=== PATIENT | male | born 1995 | race Caucasian/White ===

== ENCOUNTER 2024-07-10 07:37 | Emergency (ER) | payer BC, SELFPAY ==
[2024-07-10 07:48] VITALS: BP 153/85; PULSE 60; RESP 16; TEMP 36.2; O2SAT 98; BMI 25.0
--- NOTE | 2024-07-10 08:06 | ED.GENADULT ---
HPI - General Adult General Date Seen: 07/10/24 Chief complaint: Laceration/Wound Stated complaint: Lac above R eyebrow Time Seen by Provider: 07/10/24 08:03 History of Present Illness HPI narrative: 28 yo M generally healthy, very pleasant gentleman who presents to the ER today for a right forehead laceration. He is up-to-date on his tetanus and believes he had all of his shots updated when he was in the [employer] a couple of years ago. He is currently on Augmentin because he had a throat infection last week but that is healing well. This morning he was going to work and he accidentally bumped his forehead against the upper edge of the car door of his jeep and suffered a horizontal laceration to the right side of his forehead just above the hairline of his right eyebrow. It was bleeding dark red venous blood but bleeding was controlled by direct pressure prior to arrival. He had his coworkers and his boss look at the wound and they encouraged him to come to the ER to get stitches because it was gaping open. No loss of consciousness. No headache. No other injuries. Vision is normal. Related Data Home Medications ?Medication ?Instructions ?Recorded ?Confirmed No Known Home Medications 07/10/24 07/10/24 Allergies Allergy/AdvReac Type Severity Reaction Status Date / Time cat dander Allergy Unknown Verified 07/10/24 07:53 [facility] Social History Smoking Status: Never smoker How often do you have a drink containing alcohol: never How often do you have six or more drinks on one occasion: Never AUDIT-C Alcohol total score: 0 Non-prescribed substance use: denies use Exam Narrative: Exam Narrative: Constitutional: Appears well-developed and well-nourished. Alert. Conversant. Non toxic. HENT: Head: No depressed skull fracture, Raccoon Eyes, Champion's sign, or hemotympanum. Face normal. TMs normal. There is a 2.5 cm linear laceration on the right forehead that is less than a cm superior to and parallels along the upper border of the lateral and of his right eyebrow. The wound edges gaping about a 3 mm at the center. It exposes dermis and some of the frontalis muscle but does not penetrate through the muscle or down to the skull. Nose: Nose normal. Mouth/Throat: Oral mucosa is clear and moist. no trismus. Pharynx normal. Tonsils symmetric. No tonsillar enlargement, erythema, or exudate. Eyes: Conjunctivae normal. EOM normal. Pupils equal, round, and reactive to light. No scleral icterus. Neck: Normal range of motion. Neck supple. No tracheal deviation present. Cardiovascular: Normal rate, regular rhythm. Pulmonary/Chest: Effort normal. No stridor. No respiratory distress. Musculoskeletal: RUE: Normal range of motion. No tenderness. No deformity LUE: Normal range of motion. No tenderness. No deformity RLE: Normal range of motion. No edema. No tenderness. No deformity LLE: Normal range of motion. No edema. No tenderness. No deformity Neurological: Alert and oriented to person, place, and time. Normal strength. CN II-VII intact. No sensory deficit. GCS eye subscore is 4. GCS verbal subscore is 5. GCS motor subscore is 6. Normal coordination Skin: Skin is warm and dry. No rash noted. No pallor. Normal capillary refill. Psychiatric: Normal mood. Normal affect. Const: Vital Signs, click to edit/add: Vital Signs - 24 hr 07/10/24 07:48 Temperature 97.2 F L Pulse Rate [Pulse Oximeter] 60 Respiratory Rate 16 Blood Pressure [Ri ght Upper Arm] 153/85 H Pulse Oximetry 98 Oxygen Delivery Me thod Room Air Course Vital Signs Vital signs: Initial Vital Signs Temperature 97.2 F L 07/10/24 07:48 Temperature Source Temporal Artery Scan 07/10/24 07:48 Pulse Rate 60 07/10/24 07:48 Respiratory Rate 16 07/10/24 07:48 Blood Pressure 153/85 H 07/10/24 07:48 Blood Pressure Mean 107 H 07/10/24 07:48 Blood Pressure Position Sitting 07/10/24 07:48 Pulse Oximetry 98 07/10/24 07:48 Oxygen Delivery Method Room Air 07/10/24 07:48 Vital Signs Temperature 97.2 F L 07/10/24 07:48 Pulse Rate 60 07/10/24 07:48 Respiratory Rate 16 07/10/24 07:48 Blood Pressure 153/85 H 07/10/24 07:48 Pulse Oximetry 98 07/10/24 07:48 Oxygen Delivery Method Room Air 07/10/24 07:48 Temperature 97.2 F L 07/10/24 07:48 Pulse Rate 60 07/10/24 07:48 Respiratory Rate 16 07/10/24 07:48 Blood Pressure 153/85 H 07/10/24 07:48 Pulse Oximetry 98 07/10/24 07:48 Oxygen Delivery Method Room Air 07/10/24 07:48 Medications Administered Medications: Discontinued Medications Generic Name Dose Route Start Last Admin Trade Name Eboni PRN Reason Stop Dose Admin Lidocaine/Epinephrine 20 ml 07/10/24 08:06 07/10/24 08:22 Lidocaine 1%-Epi 1:100,000 INFILTRATI 07/10/24 08:07 20 ml ONCE ONE Administration Medical Decision Making MDM Narrative Medical decision making narrative: Findings and exam are consistent with an uncomplicated laceration which was repaired as noted above. There is no evidence at this time to suggest any associated fracture or foreign body. There is no evidence to suggest intracranial injury and patient is neurologically in tact. The patient is to follow up for suture removal as instructed in 5-7 days if they don't dissolve and fall out on their own. Indications to seek urgent reevaluation and signs of infection (including but not limited to increasing pain, redness, swelling, fevers, and drainage) were reviewed. Tetanus is up-to-date. This is a clean and noncontaminated wound in which prophylactic antibiotics are not indicated, however he is already on Augmentin for a throat infection and so I advised him to continue that. An understanding of the discharge instructions and need for follow up were verbally confirmed. Discharge Plan Discharge Clinical Impression: Forehead laceration Patient Disposition: Home, Self-Care Condition: Stable Instructions: Laceration (DC) Additional Instructions: As we discussed, please follow-up with your doctor to have the stitches removed in 5-7 days. While the stitches are in, try to keep the wound clean. It is okay to wash the wound gently once per day with warm water. Try not to submerge the wound under water or get it very wet. After the wound is clean, gently dried with gauze or let it air dry. After it is dry you can reapply a small amount of antibiotic ointment and a dressing to cover the wound and the stitches. Watch the wound for any signs of infection such as redness, swelling, or pus draining from the wound. If you have any concerns, please see your doctor or come back to the ER right away. As we discussed, this wound will leave a scar. To help minimize scar, use sunscreen and wear a hat for the next 6 months to avoid sun tanned or sun exposure. If you have any other concerns, please contact the ER or return to the ER right away. Prescriptions: No Action No Known Home Medications Follow Up/Referrals: Provider,Not a Local [Primary Care Provider] - Stand Alone Forms: [facility] Info Instructions Procedures Laceration Right forehead laceration: Pre procedure diagnosis: Right eyebrow laceration Verification/time out: correct patient and correct site Site: face (Right forehead, superior to the right eyebrow) Side (If applicable): right Size (cm): 2.5 Description: linear Depth: simple, single layer Local Anesthetic: lidocaine 1% and with epi Pre-repair: wound explored and deep structures intact Skin layer closed with: nylon Size (cm): 6-0 Number of sutures: 5 Technique: simple, interrupted
[2024-07-10] MEDS: LIDOCAINE 1%-EPI 1:100,000 20 ML INFILTRATI (08:22)
--- OUTSIDE RECORDS SUMMARY | 2024-07-10 08:33 | XMS_ITS | Clinical Summary ---
Author Organization [employer] [facility] Address [address] [place] [id number] Care Team Providers Care Operation Agent Name Role Phone Clinic, No Pcp Or Primary Care Provider Unavaila ble Allergies Active Allergy Reactions Criticality Noted Date Comments Cats (Fur, Dander, Saliva) Itching 3 Dust Mites Itching 04/20/2012 Pollen Extracts Itching 04/20/2012 Medications aspirin 325 mg tablet Take 325 mg by mouth once daily with a meal. Active cyclobenzaprine (FLEXERIL) 10 mg tabletIndication s:Acute left-sided thoracic back pain Take 1 Tablet (10 mg) by mouth at bedtime if needed for Muscle Spasm. 20 Tablet 01/18/2024 Active amoxicillin-clav ulanate 875-125 mg tabletIndication s:Pharyngitis, unspecified etiology Take 1 Tablet by mouth two times daily with meals for 10 days. 20 Tablet 07/05/2024 07/16/19 25 Active Encounters Date Type Department Care Team Description 07/06/2024 10:36 PM CDT - 07/06/2024 11:[address] [facility] [address] [place] [address] José Luis Tinoco MD Pharyngitis, unspecified etiology (Primary Dx) Discharge Disposition: Home Self Care 07/06/2024 Travel 07/05/2024 12:44 PM CDT - 07/05/2024 11:59 PM CDT Hospital Encounter [facility] [address] [facility] [place] [address] Jeannie Wheeler PA 07/05/2024 11:01 AM CDT - 07/05/2024 12:25 PM CDT Emergency [facility] [address] [place] [phone] Jeannie Wheeler PA Pharyngitis, unspecified etiology (Primary Dx) Discharge Disposition: Home Self Care 07/05/2024 Travel from Last 3 Months Social History Tobacco Use Types Packs/Day Years Used Date Smoking Tobacco: Never Passive Smoke Exposure: Never Smokeless Tobacco: Current Chew Tobacco Cessation:Ready to Q uit: Not Asked; Counseling Given: Not Answered Alcohol Use Standard Drinks/Week Comments Not Asked 0 (1 standard drink = 0.6 oz pur e alcohol) Social Connections Answer Date Recorded Do you often feel lonely or isolated from those around you? 0 01/18/2024 Financial Resource Strain Answer Date R ecorded Difficulty of Paying Living Expenses 3 04/14/2024 Difficulty of Paying Living Expenses Not on file 04/14/2024 Food Insecurity Answer Date Recorded Do you worry your food will run out before you are able to buy more? 1 01/18/2024 Transportation Needs Answer Date Record ed Does lack of transportation keep you from medica l appointments? 1 01/18/2024 Does lack of transportation keep you from work, meetings or getting things that you need? 1 01/18/2024 Housing Stability Answer Date Recorded What is your housing situation today? 1 01/18/2024 Interpersonal Safety Answer Date Record ed Are you being hit, kicked, p ushed or yelled at (see row info)? No 07/06/2024 Interpersonal Safety Abuse 12 - 18 Not on file 07/06/2024 Interpersonal Safety Ambulatory Vulnerability No t on file 07/06/2024 Utilities Answer Date Recorded Do you have trouble paying f or utilities (for example, heat, electricity, water, phone)? 1 01/18/2024 Sex and Gender Information Value Date Recorded Sex Assigned at Not on file Legal Sex Male 5:48 AM [employer] Gender Identity Not on file Sexual Orientation Not on file Obstetrics History Last Filed Vital Signs Vital Sign Reading Time Taken Comments Blood Pressure 143/94 07/06/2024 11:28 PM CDT Pulse 79 07/06/2024 11:28 PM CDT Temperature 37.3 C (99.1 F) 07/06/2024 10:42 PM CDT Respiratory Rate 18 07/06/2024 10:42 PM CDT Oxygen Saturation 96% 07/06/2024 11:28 PM CDT Inhaled Oxygen Concentration - - Weight 88.5 kg (195 lb) 07/06/2024 10:42 PM CDT Height 188 cm (6' 2) 07/06/2024 10:42 PM CDT Body Mass Index 25.04 07/06/2024 10:42 PM CDT Plan of Treatment Health Maintenance Due Date Last Done Comments Tdap 2008 Depression screening for age 12+ 2009 HIV for age 15-65 2012 HPV series for age 9-26 (1 - Male 3-dose series) 2012 BMI (ht and wt on same day) for age 18+ 10/10/2015 Hepatitis C screening for ag e 18-79 10/10/2015 Tetanus booster 2017 COVID-19 vaccine series ( season) 2023 04/08/2021, 08/18/2020 Influenza Vaccine (Season Ended) 2024 Pneumococcal series for age 6-49 Aged Out No longer eligible b ased on patient's age to complete this topic Procedures Procedure Name Priority Date/Time Associated Diagnosis Comments CT NECK SOFT TISSUE W STAT 07/05/2024 1:25 PM CDT ISTAT CHEM 8 Today 07/05/2024 12:15 PM CDT HETEROPHILE STAT 07/05/2024 11:39 AM CDT CWS PATH REVIEW HEMATOLOGY STAT 07/05/2024 11:38 AM CDT RED CELL MORPHOLOGY STAT 07/05/2024 1 1:38 AM CDT PLATELET ESTIMATE STAT 07/05/2024 11: 38 AM CDT MANUAL DIFFERENTIAL STAT 07/05/2024 1 1:38 AM CDT CBC WITH AUTO DIFFERENTIAL STAT 07/05/2024 11:38 AM CDT CBC WITH AUTO DIFFERENTIAL STAT 07/05/2024 11:38 AM CDT STREP A PCR STAT 07/05/2024 11:11 AM CDT COVID-19 MOLECULAR Today 07/05/2024 11 :11 AM CDT THROAT RAPID STREP A WITH REFLEX STAT 07/05/2024 11:11 AM CDT INFLUENZA A/B PCR Today 07/05/2024 11: 11 AM CDT from Last 3 Months Results * CT NECK SOFT TISSUE W (07/05/2024 1:25 PM CDT) Anatomical Region Laterality Modality NECK Computed Tomogra phy 07/05/2024 1:51 PM CDT Impressions 07/05/2024 1:51 PM CDT Tonsillitis and pharyngitis. Reactive adenitis. No abscess. Please note that all CT scans at this facility use dose modulation, iterative reconstruction, and/or weight-based dosing when appropriate to reduce radiation dose to as low as reasonably achievable. Dictated by Layla Shah MD @ 07/05/2024 1:51:20 PM (Electronically Signed) Narrative 07/05/2024 1:51 PM CDT For Patients: As a result of the Cures Act, medical imaging exams and procedure reports are released immediately into your electronic medical record. You may view this report before your referring provider. If you have questions, please contact your health care provider. INDICATION: Epiglottitis or tonsillitis suspected. COMPARISON: None. TECHNIQUE: CT of the neck with IV contrast. Multiplanar axial, coronal, and sagittal reformats were reconstructed. Intravenous contrast: 80 mL Omnipaque 350. FINDINGS: Lymph nodes: Mildly enlarged bilateral cervical lymph nodes. No veronica necrosis or veronica abscess. Enlarged lymph nodes are primarily level II. Parotid and submandibular glands: Normal. Thyroid gland: Normal. Tonsils: Mildly enlarged adenoids. Enlarged and mildly hyperenhancing palatine and lingual tonsils. There is a single punctate tonsillith on the right and 1 on the left. Airway: Normal. Not deviated or narrowed. Normal epiglottis. Parapharyngeal spaces: Mild pharyngeal edema. No peritonsillar abscess. No retropharyngeal edema or abscess. Paranasal sinus: Normal. Soft tissues: Normal. No swelling. No foreign body. Arteries: No atherosclerosis. Veins: No deep vein thrombosis. Lung apices: Normal. Bones: No fractures. No focal bone lesions. Healthy dentition. Included intracranial contents, orbits and mastoids: Normal. Procedure Note Layla Shah MD - 07/05/2024 For Patients: As a result of the Cures Act, medical imagingexams and procedure reports are released immediately into your electronicmedical record. You may view this report before your referring provider.If you have questions, please contact your health care provider. INDICATION: Epiglottitis or tonsillitis suspected. COMPARISON: None. TECHNIQUE: CT of the neck with IV contrast. Multiplanar axial, coronal, and sagittalreformats were reconstructed. Intravenous contrast: 80 mL Omnipaque 350. FINDINGS: Lymph nodes: Mildly enlarged bilateral cervical lymph nodes. No nodalnecrosis or veronica abscess. Enlarged lymph nodes are primarily level II. Parotid and submandibular glands: Normal. Thyroid gland: Normal. Tonsils: Mildly enlarged adenoids. Enlarged and mildly hyperenhancingpalatine and lingual tonsils. There is a single punctate tonsillith on theright and 1 on the left. Airway: Normal. Not deviated or narrowed. Normal epiglottis. Parapharyngeal spaces: Mild pharyngeal edema. No peritonsillar abscess. Noretropharyngeal edema or abscess. Paranasal sinus: Normal. Soft tissues: Normal. No swelling. No foreign body. Arteries: No atherosclerosis. Veins: No deep vein thrombosis. Lung apices: Normal. Bones: No fractures. No focal bone lesions. Healthy dentition. Included intracranial contents, orbits and mastoids: Normal. IMPRESSION: Tonsillitis and pharyngitis. Reactive adenitis. No abscess. Please note that all CT scans at this facility use dose modulation,iterative reconstruction, and/or weight-based dosing when appropriate toreduce radiation dose to as low as reasonably achievable. Dictated by Layla Shah MD @ 07/05/2024 1:51:20 PM (Electronically Signed) Jeannie ALAS CT Final Result * (ABNORMAL) ISTAT CHEM 8 (07/05/2024 12:15 PM CDT) [facility] SODIUM, POCT 138 135 - 145 mmol/L 07/05/2024 12:17 PM CDT [facility] POTASSIUM, POCT 4.0 3.5 - 5.0 mmol/L 07/05/2024 12:17 PM CDT [facility] CHLORIDE, POCT 101 98 - 107 mmol/L 07/05/2024 12:17 PM CDT [facility] CO2,TOTAL, POCT 26 21 - 31 mmol/L 07/05/2024 12:17 PM CDT [facility] ANION GAP, POCT 16 5 - 18 12:17 PM CDT [facility] GLUCOSE, POCT 111(H) 70 - 99 mg/dL 07/05/2024 12:17 PM CDT [facility] IONIZED CALCIUM, POCT 1.15 1.15 - 1.27 mmol/L 07/05/2024 12:17 PM CDT [facility] BUN, POCT 19 8 - 25 mg/dL 07/05/2024 12:17 PM CDT [facility] CREATININE, POCT 1.10 0.57 - 1.11 mg/dL 07/05/2024 12:17 PM CDT [facility] Comment:Caution: Patients ta oc Hydroxyurea have falsely increased iStat Creatinine results. Verify creatinine results ordering a Creatinine (59227.2) BUN/CREAT RATIO, POCT 17 10 - 20 07/05/2024 12:17 PM CDT [facility] eGFR >90 >90 mL/min/1.7 3m2 07/05/2024 12:17 PM CDT [facility] Comment:As of 2021, eG FR is calculated by the CKD-EPI creatinine equation without race adjustment. eGFR can be influenced by muscle mass, exercise, and diet. The reported eGFR is an estimation only and is only applicable if the renal function is stable. Blood BLOOD SPECIMEN / Unknown 07/05/2024 12:15 PM CDT 07/05/2024 12:17 PM CDT Jeannie ALAS CHEMISTRY Final Result Performing Organization Address City/[facility]/ZIP Co de Phone Number [facility] [address] [facility] [address] [address], [place] [phone] * HETEROPHILE (07/05/2024 11:39 AM CDT) Pathologist [facility] HETEROPHILE Negative Negative 07/05/2024 11:49 AM CDT [facility] Blood BLOOD SPECIMEN / Unknown Venipuncture / Unknown 07/05/2024 11:39 AM CDT 07/05/2024 11:39 AM CDT Jeannie ALAS HEMATOLOGY Final Result Performing Organization Address [facility] Co de Phone Number [facility] [address] [address], [place] [phone] * CWS PATH REVIEW HEMATOLOGY (07/05/2024 11:38 AM CDT) [facility] PATH COMMENT Reviewed by KM on 07/06/2024 07/06/2024 1:10 PM CDT [facility] Blood BLOOD SPECIMEN / Unknown Venipuncture / Unknown 07/05/2024 11:38 AM CDT 07/05/2024 11:38 AM CDT Jeannie ALAS LABORATORY Final Result Performing Organization Address City/[facility]/ZIP Co de Phone Number [facility] [address] [place] [address], [place] * (ABNORMAL) CBC WITH AUTO DIFFERENTIAL (07/05/2024 11:38 AM CDT) Pathologist [facility] WHITE BLOOD COUNT 20.6(H) 4.5 - 11.0 thou/cu mm 07/05/2024 6:04 PM CDT [facility] RED BLOOD COUNT 5.19 4.30 - 5.90 mil/cu mm 07/05/2024 6:04 PM CDT [facility] HEMOGLOBIN 15.3 13.5 - 17.5 g/dL 07/05/2024 6:04 PM CDT [facility] HEMATOCRIT 43.5 37.0 - 53.0 % 07/05/2024 6:04 PM CDT [facility] MCV 84 80 - 100 fL 07/05/2024 6:04 PM CDT [facility] MCH 29.5 26.0 - 34.0 pg 07/05/2024 6:04 PM CDT [facility] MCHC 35.2 32.0 - 36.0 g/dL 07/05/2024 6:04 PM CDT [facility] RDW 12.8 11.5 - 15.5 % 07/05/2024 6:04 PM CDT [facility] PLATELET COUNT 162 140 - 440 thou/cu mm 07/05/2024 6:04 PM CDT [facility] MPV 10.4 6.5 - 11.0 fL 07/05/2024 6:04 PM CDT [facility] Blood BLOOD SPECIMEN / Unknown Venipuncture / Unknown 07/05/2024 11:38 AM CDT 07/05/2024 11:38 AM CDT Jeannie ALAS HEMATOLOGY Final Result [facility] [address] [place] [address], [facility] [address] [place] [address], * RED CELL MORPHOLOGY (07/05/2024 11:38 AM CDT) [facility] RBC COMMENT RBC morphology appears normal RBC morphology appears normal, RBC morphology within normal limits for newborns. 07/05/2024 6:04 PM CDT [facility] Blood BLOOD SPECIMEN / Unknown Venipuncture / Unknown 07/05/2024 11:38 AM CDT 07/05/2024 11:38 AM CDT Jeannie ALAS HEMATOLOGY Final Result Performing Organization Address City/[facility]/ZIP Co de Phone Number [facility] [address] [address], [place] * PLATELET ESTIMATE (07/05/2024 11:38 AM CDT) PLATELET ESTIMATE Adequate Adequate, No estimate 07/05/2024 6:04 PM CDT [facility] Blood BLOOD SPECIMEN / Unknown Venipuncture / Unknown 07/05/2024 11:38 AM CDT 07/05/2024 11:38 AM CDT Jeannie ALAS HEMATOLOGY Final Result Performing Organization Address City/[facility] Co de Phone Number [facility] [address] [address], [place] * (ABNORMAL) MANUAL DIFFERENTIAL (07/05/2024 11:38 AM CDT) % NEUTROPHILS 85.9 % 07/05/2024 6:04 PM CDT [facility] % LYMPHOCYTES 4.3 % 07/05/2024 6:04 PM CDT [facility] % MONOCYTES 9.4 % 07/05/2024 6:04 PM CDT [facility] % EOSINOPHILS 0.4 % 07/05/2024 6:04 PM CDT [facility] % BASOPHILS 0.0 % 07/05/2024 6:04 PM CDT [facility] NEUTROPHILS ABSOLUTE 17.7(H) 1.7 - 7.0 thou/cu mm 07/05/2024 6:04 PM CDT [facility] LYMPHOCYTES ABSOLUTE 0.9 0.9 - 2.9 thou/cu mm 07/05/2024 6:04 PM CDT [facility] MONOCYTES ABSOLUTE 1.9(H) <0.9 thou/cu mm 07/05/2024 6:04 PM CDT [facility] EOSINOPHILS ABSOLUTE 0.1 <0.5 thou/cu mm 07/05/2024 6:04 PM CDT [facility] BASOPHILS ABSOLUTE 0.0 <0.3 thou/cu mm 07/05/2024 6:04 PM CDT [facility] Blood BLOOD SPECIMEN / Unknown Venipuncture / Unknown 07/05/2024 11:38 AM CDT 07/05/2024 11:38 AM CDT Jeannie ALAS HEMATOLOGY Final Result Performing Organization Address [facility]/ZIP Co de Phone Number [facility] [address] [place] [address], [place] * COVID-19 MOLECULAR (07/05/2024 11:11 AM CDT) COVID 19 [facility] MOLECULAR Negative Negative 07/05/2024 8:42 PM CDT [facility] TESTING LABORATORY [facility] 07/05/2024 8:42 PM CDT [facility] Comment:Specimen submitted t o [facility] for testing. Other OROPHARYNGEAL / Unknown Non-Blood / Unknown 07/05/2024 11:11 AM CDT 07/05/2024 11:11 AM CDT Narrative [facility] - 07/05/2024 8:42 PM CDT All PCR tests are subject to false negative result due to variability in viral load and collection technique. A negative result does not rule out a SARS-CoV-2 infection. Clinical correlation required. Jeannie ALAS MICROBIOLOGY Final Result Performing Organization Address [facility]/ZIP Co de Phone Number [facility] [address] [place] [address], [place] * STREP A PCR (07/05/2024 11:11 AM CDT) GROUP A STREP Negative 07/05/2024 7:50 PM CDT [facility] Throat SPECIMEN FROM THROAT / Unknown Non-Blood / Unknown 07/05/2024 11:11 AM CDT 07/05/2024 11:18 AM CDT Jeannie ALAS MICROBIOLOGY Final Result [facility] [address] [address], [place] * INFLUENZA A/B PCR (07/05/2024 11:11 AM CDT) Pathologist [facility] INFLUENZA A PCR Negative 07/05/2024 8:42 PM CDT [facility] INFLUENZA B PCR Negative 07/05/2024 8:42 PM CDT [facility] Other OROPHARYNGEAL / Unknown Non-Blood / Unknown 07/05/2024 11:11 AM CDT 07/05/2024 11:11 AM CDT Jeannie ALAS MICROBIOLOGY Final Result Performing Organization Address [facility] Co de Phone Number [facility] [address] [address], [place] * THROAT RAPID STREP A WITH REFLEX (07/05/2024 11:11 AM CDT) Pathologist [facility] STREP A ANTIGEN Negative 07/05/2024 11:18 AM CDT [facility] Comment:PCR to follow. Throat SPECIMEN FROM THROAT / Unknown Non-Blood / Unknown 07/05/2024 11:11 AM CDT 07/05/2024 11:11 AM CDT Jeannie ALAS MICROBIOLOGY Final Result Performing Organization Address City/[facility]/ZIP Co de Phone Number [facility] [address] [place] [address], [place] [phone] from Last 3 Months Insurance [facility] Care Teams Operation Agent Relationship Specialty Start Date End Date Clinic, No Pcp Or . PCP - General 01/23/18
--- OUTSIDE RECORDS SUMMARY | 2024-07-10 08:33 | XMS_ITS | Continuity of Care Document ---
Author Name [facility] Organization [facility] Care Team Providers Care Lead Application Architect Name Role Phone [facility] Unavailable Unavailable Problems Combined list of problems from Department of Defense and Veterans Affairs facilities. It does not include entries that were removed or entered in error. 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 08, 2021 Entered By: WILLIAM DONAHUE Comment: 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, gets unemploymentSep 08, 2021 Entered By: WILLIAM DONAHUE Comment: Sister has had Type II DM and asthma, brother had appendex removedSep 08, 2021 Entered By: WILLIAM DONAHUE Comment: [place] [employer] 2021 Entered By: WILLIAM DONAHUE Comment: CHEWS TOBACCO started at age 15Jun 2021 Entered By: WILLIAM DONAHUE Comment: NO Alcohol since 2021 Entered By: WILLIAM DONAHUE Comment: works for [employer] 08, 2021 Entered By: WILLIAM DONAHUE Comment: younger brother has had STEM CELL TRANSPLANT A , has had chemo and one kidney failed [facility] H/O: surgery Active Condition Sep 08, 2021 Entered By: WILLIAM DONAHUE Comment: s/p multiple wisdom teeth extraction on lower jaw(says he has had more than one each side of top and bottom jaw) [facility] Medications Combined list of outpatient medications from Department of Defense and Veterans Affairs facilities.Medications provided include 1) outpatient medications from the last 15 months, and 2) patient-reported medications. Medication Details Route Status Patient Instructions Prescription Expires Prescription Number Last Dispense Date Ordering Provider Order Date Order Qty Source NON VA MED NOT LISTED USE ALEEVE MOUTH PRN ORAL ACTIVE FARZAD DONAHUE S 2021 [employer] Allergies, Adverse Reactions, Alerts Combined list of allergies from Department of Defense and Veterans Affairs facilities. It does not include entries that were removed or entered in error. Substance Category Reaction Severity Reaction type Status Date Reported Comments Source No Known Allergies Drug allergy (disorder) active 09/09/2015 [place] Immunizations Combined list of available immunizations from the Department of Defense and Veterans Affairs facilities. Immunization Series Date Given Administered By Site Reaction Lot Number CVX Code Drug Material Cutter Status Comments Source SARS-COV-2 (COVID-19) vaccine, mRNA, spike protein, LNP, preservative free, 30 mcg/0.3mL dose 1 2021 REZA ACEVES [id number] [employer] (PFR) complet ed SARS-COV- 2 (COVID-19 ) vaccine, mRNA, spike protein, LNP, preservat anthony free, 30 mcg/0.3mL dose DoD COVID-19 (PFIZER), MRNA, LNP-S, PF, 30 MCG/0.3 ML DOSE 3 2021 208 complet ed [facility] influenza, injectable, quadrivalent, contains preservative 1 2021 [id number] 158 SmithKline (SKB) complet ed influenza , injectabl e, quadrival ent, contains preservat anthony DoD Influenza, injectable, Madin Julianne Canine Kidney, quadrivalent with preservative 1 2021 ALFREDO POON [id number] 186 [employer] (SKB) complet ed Influenza , injectabl e, Madin Julianne Canine Kidney, quadrival ent with preservat anthony DoD INFLUENZA, UNSPECIFIED FORMULATION 2021 88 complet ed [facility] anthrax vaccine 2020 [id number] Emergent [employer] complet ed anthrax vaccine 09/19/20 Given Ambulat ory Pharmac y anthrax vaccine 2 2020 [id number] 24 [employer]gent [employer] [place] ([facility]) complet ed anthrax vaccine DoD SARS-CoV-2 (COVID-19) Ad26 vaccine, rec [id number] 212 [employer] complet ed SARS-CoV- 2 (COVID-19 ) Ad26 vaccine, rec 08/18/20 Given Ambulat ory Pharmac y SARS-COV-2 (COVID-19) vaccine, vector non-replicati ng, recombinant spike protein-Ad26, preservative free, 0.5 mL 1 [id number] (JANETTE) complet ed SARS-COV- 2 (COVID-19 ) vaccine, vector non-repli cating, recombina nt spike protein-A d26, preservat anthony free, 0.5 mL DoD COVID-19 (KEATON), VECTOR-NR, RS-AD26, PF, 0.5 ML 1 2020 212 complet ed [facility] typhoid Vi capsular polysaccharid e vac 2020 zzRig ht Arm [id number] sanofi pasteur complet ed typhoid Vi capsular polysacch aride vac 05/30/20 Given Ambulat ory Pharmac y anthrax vaccine 2020 zzLef t Arm [id number] 24 GlaxoSmithKli ne complet ed anthrax vaccine 05/30/20 Given Ambulat ory Pharmac y measles/mumps /rubella virus vaccine 2020 zzRig ht Arm [id number] Merck & Company Inc complet ed measles/m umps/rube lla virus vaccine 05/30/20 Given Ambulat ory Pharmac y measles, mumps and rubella virus vaccine 2 2020 LASHA HUI [id number] Merck (MSD) complet ed measles, mumps and rubella virus vaccine DoD anthrax vaccine 1 2020 LASHA HUI T [id number] 24 I-MD (SKB) complet ed anthrax vaccine DoD typhoid Vi capsular polysaccharid e vaccine 1 2020 LASHA HUI T [id number] Sanofi Pasteur (PMC) complet ed typhoid Vi capsular polysacch aride vaccine DoD influenza, injectable, quadrivalent- pf 2018 [id number] 150 Seqirus complet ed influenza , injectabl e, quadrival ent-pf 01/28/19 Given Ambulat ory Pharmac y Influenza, injectable, quadrivalent, preservative free 1 2018 [id number] 150 Seqirus (SEQ) complet ed Influenza , injectabl e, quadrival ent, preservat anthony free DoD influenza, injectable, quadrivalent- pf 2017 [id number] 150 Se[employer]irus complet ed influenza , injectabl e, quadrival ent-pf 01/28/18 Given Ambulat ory Pharmac y Influenza, injectable, quadrivalent, preservative free 1 2017 [id number] 150 Seqirus (SEQ) comple t ed Influenza , injectabl e, quadrival ent, preservat anthony free DoD Influenza, inj, MDCK, quadrivalent- pf [id number] Unknown complet ed Influenza , inj, MDCK, quadrival ent-pf 01/02/17 Given Ambulat ory Pharmac y Influenza, injectable, Madin Farrell Canine Kidney, preservative free, quadrivalent 1 [id number] 171 Unknown (UNK) comple t ed Influenza , injectabl e, Madin Julianne Canine Kidney, preservat anthony free, quadrival ent DoD hepatitis B pediatric/ado lescent 2016 [id number] 08 GlaxoSmithKli ne complet ed hepatitis B pediatric /adolesce nt 09/20/16 Given Ambulat ory Pharmac y hepatitis B vaccine, pediatric or pediatric/ado lescent dosage 3 2016 [id number] 08 SmithKline (SKB) complet ed hepatitis B vaccine, pediatric or pediatric /adolesce nt dosage DoD influenza, seasonal, injectable 2015 [id number] 141 Unknown complet ed influenza , seasonal, injectabl e 02/14/16 Given Ambulat ory Pharmac y Influenza, seasonal, injectable 1 2015 [id number] 141 Unknown (UNK) comple t ed Influenza , seasonal, injectabl e DoD hepatitis B pediatric/ado lescent 2015 [id number] 08 GlaxoSmithKli ne complet ed hepatitis B pediatric /adolesce nt 10/22/15 Given Ambulat ory Pharmac y hepatitis B vaccine, pediatric or pediatric/ado lescent dosage 2 2015 [id number] 08 SmithKline (SKB) complet ed hepatitis B vaccine, pediatric or pediatric /adolesce nt dosage DoD adenovirus vaccine, live 2015 [id number] 143 Teva Pharmaceutica ls complet ed adenoviru s vaccine, live 08/29/15 Given Ambulat ory Pharmac y hepatitis B pediatric/ado lescent 2015 [id number] 08 GlaxoSmithKli ne complet ed hepatitis B pediatric /adolesce nt 08/29/15 Given Ambulat ory Pharmac y measles, mumps and rubella virus vaccine 1 2015 UNK 03 Unknown (UNK) Not Given measles, mumps and rubella virus vaccine DoD hepatitis B vaccine, pediatric or pediatric/ado lescent dosage 1 2015 [id number] 08 I-MD (SKB) complet ed hepatitis B vaccine, pediatric or pediatric /adolesce nt dosage DoD varicella virus vaccine 1 2015 UNK 21 Unknown (UNK) Not Given varicella virus vaccine DoD hepatitis A vaccine, adult dosage 1 2015 UNK 52 Unknown (UNK) Not Given hepatitis A vaccine, adult dosage DoD Adenovirus, type 4 and type 7, live, oral 1 2015 [id number] 4 143 [facility] ([facility]) complet ed Adenoviru s, type 4 and type 7, live, oral DoD tetanus, diphtheria, acellular pertu is 2015 [id number] 115 sanofi pasteur complet ed tetanus, diphtheri a, acellular pertussis 08/27/15 Given Ambulat ory Pharmac y meningococcal A,C,Y,W-135 (MCV4P) 2015 [id number] 114 GlaxoSmithKli ne complet ed meningoco ccal A,C,Y,W-1 35 (MCV4P) 08/27/15 Given Ambulat ory Pharmac y poliovirus vaccine, inactivated 2015 [id number] 10 sanofi pasteur complet ed polioviru s vaccine, inactivat ed 08/27/15 Given Ambulat ory Pharmac y poliovirus vaccine, inactivated 1 2015 [id number] 10 Sanofi Pasteur (PMC) complet ed polioviru s vaccine, inactivat ed DoD meningococcal polysaccharid e (groups A, C, Y and W-135) diphtheria toxoid conjugate vaccine (MCV4P) 1 2015 [id number] [facility] meningoco ccal polysacch aride (groups A, C, Y and W-135) diphtheri a toxoid conjugate vaccine (MCV4P) DoD tetanus toxoid, reduced diphtheria toxoid, and acellular pertu is vaccine, adsorbed 1 2015 [id number] 115 Sanofi Pasteur (PMC) complet ed tetanus toxoid, reduced diphtheri a toxoid, and acellular pertussis vaccine, adsorbed DoD TDAP 2015 115 complet ed [facility] TDAP 2009 115 complet ed [facility] Encounters Combined list of: 1) Encounters from Department of Veterans Affairs facilities going backup to the last 18 months, not all [place] inpatient encounters are included; 2) Encounters from the Department of Defense facilities going backup to 280 months. Location Location Details Encounter Type Encounter Number Reason For Visit Attending Provider ADM Date DC Date Status Disposition Source [place] [place] OUTPATIENT [id number] FRANCES SHETTY 08/27 Released w/o Limitations [place] [id number] Notes Entered by: ASIA HERNANDEZ 29 Aug 2015 0957 ------- ------- ------- ------- -- IMM MINA HENDRIX 08/28 Released w/o Limitations [place] [place] [id number] Notes Entered by: YANELI ZAVALA 29 Aug 2015 1031 ------- ------- ------- ------- -- hearing test BOBBI ZAVALA 08/28 Released w/o Limitations [place] [place] OUTPAT[place] [id number] Notes Entered by: VELOZ 09 Sep 2015 0658 ------- ------- ------- ------- -- ORTHO/ right elbow pain CHICHO HAND 09/08 Released [place]/o Limitations [place] OUTPATIENT [id number] Notes Entered by: QUINTIN MORENO RD C 20 Sep 2015 0734 ------- ------- ------- ------- -- DERM rash on back, OTHER foot pain MINA MORALES 09/19 Released with Work/Duty Limitations [place]) [place] OUTPATIENT [id number] Notes Entered by: NAHUN MANN 22 Sep 2015 0740 ------- ------- ------- ------- -- ORTHO f/u feet pain ANDREW NICHOLS 09/21 Released with Work/Duty Limitations [place] OUT[place] [id number] Notes Entered by: Terrence KRISHNA 23 Sep 2015 0958 ------- ------- ------- ------- -- Feet KILO GR C 09/22 [place]ased w/o Limitations [place] [place] [place]IENT [id number] PATIENT NEEDS [facility] ARCH SUPPORT CHELSEA LAWSON 09/25 [place]ased w/o Limitations [place] OUTPATIENT [id number] Notes Entered by: NAHUN MANN 29 Sep 2015 0704 ------- ------- ------- ------- -- ORTHO f/u plantar fasciit is ANDREW NICHOLS 09/28 Released with Work/Duty Limitations [place] [facility]) OUTPATIENT [id number] ORTHO fu feet CHALINO GARCIA 10/09 Released with Work/Duty Limitations [place] [facility]) OUTPATIENT [id number] ORTHO fu bone scan CHALINO GARCIA 10/14 Released with Work/Duty Limitations [place]) OUTPATIENT [id number] Notes Entered by: BEN PERRY 22 Oct 2015 0937 ------- ------- ------- ------- -- IMM-HEP B(P) ANDREW NICHOLS 10/21 [place]ased w/o Limitations [place] OUTPATIENT [id number] Notes Entered by: JUNE ROY 17 Sep 2016 0730 ------- ------- ------- ------- -- hearing test JUNE ELLIS 09/17 Released w/o Limitations [place] ) [place] [place] OUTPATIENT [id number] MARY WHITE 09/17 Released w/o Limitations [place] [place] [facility] [id number] Notes Entered by: ASIA HERNANDEZ 21 Sep 2016 1526 ------- ------- ------- ------- -- IMM HEP BP ANTONIO GONZALEZ 09/21 [place]ased [place]/o Limitations [place]) OUTPATIENT [id number] Notes Entered by: BEN PERRY 01 Nov 2016 0911 ------- ------- ------- ------- -- FABIÁN Alfonso 11/01 Released w/o Limitations [place] [place]([facility]) [facility] OUTPATIENT [id number] Notes Entered by: TERENCE KIDD 30 May 2020 0756 ------- ------- ------- ------- -- VERONICA GILLILAND 05/30 Released w/o Limitations [facility] OUTPATIENT [id number] Notes Entered by: DELVIN KAMARA 30 May 2020 1038 ------- ------- ------- ------- -- BOBBI RUDOLPH 05/30 Released w/o Limitations [facility] ) [facility] OUTPATIENT [id number] Notes Entered by: Traci MEHTA 07 Apr 2021 0645 ------- ------- ------- ------- -- JAZMIN SMITH 04/07 Released w/o Limitations [facility] OUTPATIENT [id number] Notes Entered by: DELVIN KAMARA 07 Apr 2021 1029 ------- ------- ------- ------- -- PATTI Pacheco+ EMANUEL MARINO 04/07 Released w/o Limitations [facility] OUTPATIENT [id number] Notes Entered by: BORA LUNA 08 Apr 2021 0619 ------- ------- ------- ------- -- F/U HEARING SINGLETONJAZMIN BELTRAN 04/08 Released w/o Limitations [facility] OUTPATIENT [id number] Notes Entered by: Clau FERNANDEZ 08 Apr 2021 0701 ------- ------- ------- ------- -- FOLLOW R2+ RE EST TINN JOSEPHINE FERNANDEZ 04/08 Released w/o Limitations [facility] OUTPATIENT [id number] Notes Entered by: REZA ACEVES 08 Apr 2021 0712 ------- ------- ------- ------- -- COVID MOI CALVERT 04/08 Released w/o Limitations [facility]) OUTPATIENT [id number] Notes Entered by: HUGH GALAN 08 Apr 2021 0912 ------- ------- ------- ------- -- 2-136 IN MB3-SM CLEAR TO BEAN MEJIA 04/08 Released w/o Limitations [facility]) [facility] OUTPATIENT [id number] WENDY GALARZA 04/10 Released w/o Limitations [facility]) Procedures Combined list of: 1) Procedures from Department of Veterans Affairs facilities going back up to thelast 18 months, not all VA non-surgical procedures are included; 2) All procedures from the Department of Defense facilities. Procedure Procedure Type Code Date Perfomer Comments Sourc e ADMINISTRATION OF PATIENT-FOCUSED HEALTH RISK ASSESSMENT INSTRUMENT (EG, HEALTH HAZARD APPRAISAL) WITH SCORING AND DOCUMENTATION, PER STANDARDIZED INSTRUMENT 04/10/2021 [facility] CASE MANAGEMENT, EACH 15 MINUTES 04/08/2021 DoD IMMUNIZATION ADMINISTRATION (INCLUDES PERCUTANEOUS, INTRADERMAL, SUBCUTANEOUS, OR INTRAMUSCULAR INJECTIONS); 1 VACCINE (SINGLE OR COMBINATION VACCINE/TOXOID) 04/08/2021 DoD PURE TONE AUDIOMETRY (THRESHOLD), AUTOMATED; AIR ONLY 04/07/2021 DoD BRIEF EMOTIONAL/BEHAVIORAL ASSESSMENT (EG, DEPRESSION INVENTORY, ATTENTION-DEFICIT/HYP ERACTIVITY DISORDER [ADHD] SCALE), WITH SCORING AND DOCUMENTATION, PER STANDARDIZED INSTRUMENT 04/07/2021 DoD PURE TONE AUDIOMETRY (THRESHOLD), AUTOMATED; AIR ONLY 05/30/2020 DoD ADMINISTRATION OF PATIENT-FOCUSED HEALTH RISK ASSESSMENT INSTRUMENT (EG, HEALTH HAZARD APPRAISAL) WITH SCORING AND DOCUMENTATION, PER STANDARDIZED INSTRUMENT 05/30/2020 DoD ATHLETIC TRAINING EVALUATION, LOW COMPLEXITY,REQ:HIST & PHYS ACT PROFILE W NO COMORB;EXAM AFF BODY AREA,ADDRESS 1-2 ELEMENTS;CLIN DEC FIONA,LOW,TYP,15 MIN ARE SPENT [id number] W THE PATIENT &/FAMILY 10/20/2016 DoD HEPATITIS B VACCINE (HEPB), PEDIATRIC/ADOLESCENT DOSAGE, 3 DOSE SCHEDULE, FOR INTRAMUSCULAR USE 09/21/2016 DoD SCREENING TEST OF VISUAL ACUITY, QUANTITATIVE, BILATERAL 09/17/2016 DoD PURE TONE AUDIOMETRY (THRESHOLD), AUTOMATED; AIR ONLY 09/17/2016 DoD HEPATITIS B VACCINE (HEPB), PEDIATRIC/ADOLESCENT DOSAGE, 3 DOSE SCHEDULE, FOR INTRAMUSCULAR USE 10/22/2015 DoD FOOT, ARCH SUPPORT, REMOVABLE, PREMOLDED, LONGITUDINAL, EACH 09/26/2015 DoD ATHLETIC TRAINING EVALUATION 09/23/2015 DoD PURE TONE AUDIOMETRY (THRESHOLD), AUTOMATED; AIR ONLY 08/29/2015 DoD ADENOVIRUS VACCINE, TYPE 7, LIVE, FOR ORAL USE 08/29/2015 DoD SCREENING TEST OF VISUAL ACUITY, QUANTITATIVE, BILATERAL 08/28/2015 DoD No data available for this section Ambulatory Pharmacy Social History Combined list of available smoking, tobacco, and other social history from Department of Defense and Veterans Affairs facilities. Social History Type Response Date Comment Sour e Tobacco smoking status NHIS VA-TOBACCO USER EVERY DAY 09/08/2021 [facility] History of tobacco use VA-TOBACCO DOESNT USE WI 30 MIN WAKEUP 09/08/2021 [facility] This section is an empty social history section. DoD Assessment and Plan Combined list of future care activities from Department of Defense and Veterans Affairs facilities (e.g., assessment and plan notes, appointments, orders, and referrals). Additional future care activities may be listed in the Plan of Care section. Result Assessment and Plan Date Source Assessment and Plan No data available for this section 07/10/2024 Ambulatory Pharmacy Plan of Care List of future care activities from Department of Veterans Affairs facilities. Additional future care activities may be listed in the Assessment and Plan section. Date/Time Care Activity Care Activity Detail Facili ty 07/19/2024 AMBULATORY - MEDICINE AMBULATORY - MEDICI CO [facility] Functional Status Combined list of recent functional and cognitive assessments recorded at Department of Defense and Veterans Affairs (VA).VA Functional Roberts Measurement (FIM) Scale: 1 = Total Assistance (Subject = 0% +), 2 = Maximal Assistance (Subject = 25% +), 3 = Moderate Assistance (Subject = 50% +), 4 = Minimal Assistance (Subject = 75% +), 5 = Supervision, 6 = Modified Roberts (Device), 7 = Complete Roberts (Timely, Safely). Assessment Date/Time Source Assessment Type Assessment Skill Assessment Score Assessment Details No data available for this section
--- OUTSIDE RECORDS SUMMARY | 2024-07-10 08:33 | XMS_ITS | Clinical Summary ---
Author Organization [employer] Address [address], [place] [address] Care Team Providers Care Hospital Unit Coordinator Name Role Phone Jem Tejeda MD Primary Care Provider [phone] Source Comments You are receiving this document as you are listed as the primary care provider,follow-up provider, or the patient has been referred to you for consultation.This is in compliance with the Medicare and[facility] EHR Incentive Program,which states Providers who transition their patient to another setting of careor provider of care or refers their patient to another provider of care shouldprovide summary care record for each transition of care or referral. [employer] Allergies No known active allergies Medications * This document contains information received from the source organization and may not represent a complete record from that organization. No known medications Active Problems Problem Noted Date Diagnosed Date Dysfunctional family processes 03/01/2012 Anxiety state 03/01/2012 Overview (11/03/2016): Anxiety state, unspecified Depression 03/01/2012 ADHD (attention deficit hyperactivity disorder) 12/09/2010 CONVERSION DX 04/24/2009 Overview (11/03/2016): LW Uncoded Problem, needs review: behavior problems Immunizations Immunization Administration Dates Next Due DTaP 10/23/2002, 9,02/12/1998,1997 DTaP/Hib 01/07/1999 Flu Vac Preserv Free (3+yrs) 01/11/2012, 01/04/2011,01/03/2010,2008,01/01/2008,01/09/2007 H1n1 Miv Sanofi 3+ Yr (Injected) 01/06/2009 HepA Ped/Adol (1-18 yrs) 11/19/2010,04/03/2009 HepB Adult (Engerix-B, 20+ y rs, 3 dose series) 08/27/1998,02/12/1998,1997 Hib (ActHIB) 04/23/1998,02/12/1998,1997 IPV (Polio) 10/23/2002,02/12/1998,1997 Influenza, Unspecified Formulation 01/26/2017 MCV4 (Menactra) 11/19/2010 MMR 10/23/2002,01/07/1999 OPV, Trivalent (Orimune or tOPV) 01/07/1999 TDAP (BOOSTRIX) 04/03/2009 Varicella 04/03/2009,01/07/1999 Family History Medical History Relation Name Comments Kidney/Bladder Disease Brother Cancer Maternal Aunt breast High Cholesterol Maternal Grandfather Cancer Maternal Grandmother breast Asthma Sister Coronary Artery Disease Negative Family History Mental Disorder Negative Family History Relation Name Status Comments Brother Maternal Aunt Maternal Grandfather Maternal Grandmother Sister Social History Tobacco Use Types Packs/Day Years Used Date Smoking Tobacco: Never Smokeless Tobacco: Current Chew Alcohol Use Standard Drinks/Week Comments No 0 (1 standard drink = 0.6 oz pur e alcohol) Sex and Gender Information Value Date Recorded Sex Assigned at Not on file Legal Sex Male 4:55 AM CDT Gender Identity Not on file Sexual Orientation Not on file Last Filed Vital Signs Vital Sign Reading Time Taken Comments Blood Pressure 122/82 04/28/2017 3:48 PM CASE MANAGEMENT ASSOCIATE Pulse 88 04/28/2017 3:48 PM CASE MANAGEMENT ASSOCIATE Temperature 38.1 C (100.6 F) 02/22/2013 1:00 PM CASE MANAGEMENT ASSOCIATE Respiratory Rate 20 12/02/2008 1:18 PM CDT Oxygen Saturation - - Inhaled Oxygen Concentration - - Weight 79.4 kg (175 lb) 04/28/2017 3:48 PM CASE MANAGEMENT ASSOCIATE Height 181.6 cm (5' 11.5) 04/28/2017 3:48 PM CS T Body Mass Index 24.07 04/28/2017 3:48 PM CASE MANAGEMENT ASSOCIATE Plan of Treatment Health Maintenance Due Date Last Done Comments Hep C Screening (Preventive Services) 1997 HPV Vaccine (1 - Male 3-dose series) 2012 DTaP/Tdap/Td Vaccine (7 - Tdap) 04/03/2019 04/03/2009, 10/23/2002, 01/07/1999, Additional history exists Adult Preventive Visit 04/28/2019 04/28/2017 COVID-19 Vaccine (1 - season) 2023 Influenza Vaccine (#1) 2023 7, 01/11/2012, 01/04/2011, Additional history exists Zoster/Shingles Vaccine (1 of 2) 10/10/2047 HepB Vaccine Completed 08/27/1998, 04/1997, 1997 Hib Vaccine Completed 01/07/1999, 04/14, 02/12/1998, Additional history exists IPV (Polio) Vaccine Completed 10/23/2002, 01/07/1999, 02/12/1998, Additional history exists Varicella Vaccine Completed 04/03/2009, 01/07/1999 HepA Vaccine Completed 11/19/2010, 04/03/2009 MCV4 Vaccine Aged Out 11/19/2010 No longer eligi ble based on patient's age to complete this topic HIV Screening (Preventive Services) Completed 04/28/2017 Meningococcal B Vaccine Aged Out No l onger eligible based on patient's age to complete this topic Pneumococcal Vaccine Aged Out No long er eligible based on patient's age to complete this topic Procedures Procedure Name Priority Date/Time Associated Diagnosis Comments HIV 1/2 AG/AB 4TH GEN Routine 04/28/2017 4:38 PM CASE MANAGEMENT ASSOCIATE Screen for STD (sexually transmitted disease) from Last 3 Months or Most Recently Relevant to Health Maintenance Results * HIV 1/2 Ag/Ab 4th Generation (04/28/2017 4:38 PM CASE MANAGEMENT ASSOCIATE) HIV-1 p24 Ag and HIV-1/HIV-2 Ab Nonreactive Nonreactive PN SOFT 04/28/2017 4:3 8 PM CASE MANAGEMENT ASSOCIATE 04/28/2017 9:05 PM CASE MANAGEMENT ASSOCIATE Narrative PN SOFT - 04/28/2017 9:44 PM CASE MANAGEMENT ASSOCIATE Performed at [address], [place] [address] CLIA number [id number] Jem Tejeda MD LAB_[email or web address] Final Result PN SOFT [address] [place] [address] from Last 3 Months or Most Recently Relevant to Health Maintenance Insurance [id number] [place] [address] [facility] * Guarantor: Chu Acevedo Account Type Relation to Patient Date of Phone Billing Address Personal/Family 1956 [address] [place] [place] [address] [facility] Care Teams Hospital Unit Coordinator Relationship Specialty Start Date End Date Jem Tejeda MD [address] [facility] [place] [address] PCP - General Family Practice 04/25/17
== END 2024-07-10 09:05 | disposition home or self-care (01) ==
PROVIDERS: Emergency Provider Emergency Medicine
DX: S01.111A Laceration without foreign body of right eyelid and periocular area, initial encounter (principal); W26.9XXA Contact with unspecified sharp object(s), initial encounter
CPT/HCPCS: 12011; 99282; 99283